=== PATIENT | female | born 1985 | race Caucasian/White ===

== ENCOUNTER 2016-11-30 19:15 | Emergency (ER) | payer MEDICAID ==
--- NOTE | 2016-11-30 19:44 | ERNOTE ---
ER Female HPI Date of Service: 11/30/16 Stated Complaint: 5-6 WEEKS . CRAMPING.SPOTTING Presenting Symptoms: vaginal bleeding Time Seen by Provider: 11/30/16 19:32 Source: patient, RN notes reviewed, past records Exam Limitations: no limitations Immunizations: IMMUNIZATION HX Immunizations Up to Date Yes History of Influenza Vaccine No Hx Pneumococcal Vaccination No Allergies/Adverse Reactions: Allergies No Known Allergies Allergy (Verified 11/30/16 19:27) Home Medications: HOME MEDICATIONS Vit No.78/Iron/FA [Prenatabs FA Tablet] 1 each PO DAILY 05/19/15 [Last Taken 01/03/16 07:00] - History of Present Illness Narrative: 31 year old female ambulatory to the ED for pelvic pain and vaginal bleeding that began at 1700. She reports that she is approximately 6 weeks . She has not yet seen her OB. She is . She had a miscarriage 4 months ago. Her menses were not regular since that time so she is not sure of her actual gestation. She reports that her bleeding is mild and describes it as spotting, much less than a normal period. She denies any fevers or dysuria. She also has a history of an ectopic that resulted in a right salpingectomy. Her last child was born in December of last year. Date (Duration): 11/30/16 Time (Timing): 17:00 Quality: Present: mild, cramping Onset Location: Present: suprapubic Radiation: Present: none Activities at Onset: Present: none Prior Abdominal Problems: Present: similar symptoms Sexual [place] History: Present: less than 2 months ago Prior Treatment: Absent: recently seen Review of Systems - Review of Systems Constitutional: Absent: recent illness, fever, chills EYE: Present: no symptoms reported ENT: Present: no symptoms reported Respiratory: Absent: shortness of breath, cough Cardiology: Absent: palpitations, syncope Gastrointestinal/Abdominal: Present: abdominal pain. Absent: nausea, vomiting, diarrhea, constipation Genitourinary: Absent: frequency, dysuria Musculoskeletal: Absent: back pain, muscle pain Skin: Absent: lesions, lumps, change in color Neurological: Absent: headache, dizziness/light-headedness Endocrine: Present: no symptoms reported Hematologic/Lymphatic: Present: no symptoms reported Psych: Present: no symptoms reported - Patient's Past Medical History Patient History - Medical: No pertinent hx Patient History - Cardiac/Respiratory: No pertinent hx Patient History - Cancer: No Hx of Cancer Patient History - Surgical Procedures: Cholecystectomy, D & C, Other - Ectopic , Right salpingectomy, LEEP Patient History - Other: None LMP (females 10-50): LMP (Calendar): 10/19/16 - uncertain - Social History Living Situations: home Abuse History: No History of abuse Psych History: No pertinent hx Smoking Status: Current every day smoker Cigarettes Packs Per Day: 0.5 Patient requests Smoking Cessation Consult: No Initiate information on Smoking Cessation: No Alcohol Use: none Drug Use: none - Immunizations Immunizations Up to Date: Yes Hx Pneumococcal Vaccination: No History of Influenza Vaccine: No Physical Exam - Physical Exam General Appearance: Present: alert, no apparent distress, anxious, thin Neck: Present: normal inspection, nontender, supple Respiratory: Present: no respiratory distress, normal breath sounds, no accessory muscle use, lungs clear Cardiovascular/Chest: Present: regular rate, rhythm, no murmur, normal peripheral pulses Gastrointestinal/Abdominal: Present: normal bowel sounds, nondistended, soft, tenderness - suprapubic. Absent: guarding, rebound, mass Pelvic Exam: Present: deferred Back Exam: Present: normal inspection, no CVA tenderness Extremity Exam: Present: normal inspection, normal range of motion, no edema Neurological Exam: Present: alert, oriented, normal mood/affect, no motor/ sensory deficits Skin Exam: Present: normal color, warm/dry ED Progress - Results and Orders Patient's Lab Results:: I have reviewed the patient's lab results. - Vital Signs Patient's Vital Signs:: I have reviewed the patient's vital signs. Vital Signs: Vital Signs 11/30/16 19:21 Temperature 36.9 C Pulse Rate 82 Respiratory 18 Rate Blood Pressure 115/66 O2 Sat by Pulse 100 Oximetry - CT/Ultrasound CT/Ultrasound Narrative: 1st trimester OB US shows a single live intrauterine with a gestational age of 6 weeks 1 day and regular cardiac activity at 91 bpm, small subchorionic hemorrhage also noted -per [facility] preliminary report - Progress/Reassessment Chief Complaint: Genitourinary Problem Progress:: Improved Departure Clinical Impression: Subchorionic hemorrhage in first trimester Qualifiers: Fetus number: single or unspecified fetus Qualified Code(s): O41.8X10 - Other specified disorders of amniotic fluid and membranes, first trimester, not applicable or unspecified; O46.8X1 - Other antepartum hemorrhage, first trimester; O46.8X1 - Other antepartum hemorrhage, first trimester - Departure Disposition: Home Follow Up Needed Condition: Good Instructions: Subchorionic Hematoma Additional Instructions: Return to ER for severe bleeding - saturating a pad per hour for 2 hours in a row, or passing large clots Abstain from intercourse for now Contact Dr. Smith if symptoms worsen/continue, otherwise see her as scheduled Referrals: Aisha Smith DO [Primary Care Provider] -
[2016-11-30 19:50] LABS: Urine Appearance Clear; Urine Bilirubin Negative (NEGATIVE); Urine Color Yellow
[2016-11-30 19:51] LABS: Urine Bacteria None Seen; Urine Blood Negative /ul (NEGATIVE); Urine Ketone Negative (NEGATIVE); Urine Nitrite Negative (NEGATIVE); Urine Protein 15 mg/dL (NEGATIVE); Urine RBC None Seen /hpf (0-5); Urine Urobilinogen Normal (NORMAL); Urine WBC 0-5 /hpf (0-5)
[2016-11-30 20:01] LABS: Hematocrit 32.7 % (37.0-47.0); Hemoglobin 10.9 gm/dL (12.5-16.0); Mean Corpuscular Hemoglobin 27.3 pg (27-31); Mean Corpuscular Hgb Conc 33.3 g/dl (32-36); Mean Platelet Volume 10.8 fl (6.0-9.5); Neutrophil # 5.3 K/mm3 (1.3-6.0); Neutrophil % 59.9 % (42-75.0); Platelet Count 265 K/mm3 (150-450); Red Blood Count 3.99 M/mm3 (4.2-5.4); Red Cell Distribution Width 13.5 % (11.5-14.0); White Blood Count 8.9 K/mm3 (4.0-10.5)
[2016-11-30 22:23] VITALS: BP 112/67
== END 2016-11-30 21:40 | disposition home or self-care (01) ==
LOC: ER 19:15
DX: O41.8X10 Other specified disorders of amniotic fluid and membranes, first trimester, not applicable or unspecified (principal); O46.8X1 Other antepartum hemorrhage, first trimester; Z33.1 Pregnant state, incidental; Z3A.01 Less than 8 weeks gestation of pregnancy; F17.200 Nicotine dependence, unspecified, uncomplicated